=== PATIENT | female | born 1965 | race African-American/Black ===

== ENCOUNTER 2016-12-29 23:24 | Inpatient (IN) | payer MEDICARE ==
--- NOTE | ~2016-12-29 | DS ---
Unit #: [id number] #: [id number] Patient: TORIE PIMENTEL [id number] [address] [place], [place] [address] [id number] I MR#: [id number] NAME: TORIE PIMENTEL ROOM: 318 Age: 51 Sex: F Admission Date: 12/29/2016 : 1965 Discharge Date: 01/04/2017 Attending Physician: Ander Mckeon M.D. Primary Care Physician: Priscilla Tejeda M.D. DISCHARGE SUMMARY DISCHARGE DIAGNOSES 1. Acute hypoxic respiratory failure, has been weaned off of oxygen and is on room air at this time. 2. Pneumonia, presumed to be gram-negative rods. 3. Persistent bilateral pleural effusions. 4. Type 2 diabetes. Patient is quite brittle. Her blood sugars range from 61-331, although she is uncontrolled. A1c accessed was 9.6. Asking for followup appointment with Dr. Weaver. 5. Acute kidney injury with chronic kidney disease. Of note, eosinophils are present in her urine, although her creatinine has normalized at this time at 0.9 and a renal ultrasound was unremarkable. 6. Sepsis present on admission. PROCEDURES None. PARTY PLAN SELLING DISTRIBUTOR Dr. Michael Flores of pulmonary. DIAGNOSTIC STUDIES IMAGING: Consists of a chest x-ray on 12/31/16. Impression: Unchanged when compared to that from study before from another hospital. Renal ultrasound. Impression: Negative renal ultrasound. Chest x-ray on 01/02/2017 with impression of bilateral pleural effusions with decrease in the bibasilar infiltrates compared with 12/31/16. LABORATORY: On the day of discharge, patient's labs include BMP: Glucose 61, BUN 34, creatinine 0.9, sodium 138, potassium 4.2, chloride is 101, CO2 31, calcium is 9.1. CBC: WBC of 12, RBC of 3.98, hemoglobin is 9.7, hematocrit is 32.2, MCV is 80.9, MCH is 24.5, MCHC is 30.3, RDW 7.4, platelets are 378, and MPV is 8.6. Microbiology: Patient had stool was negative occult. Again, random urine had occasional eosinophils. Blood culture has been negative to date. HOSPITAL COURSE Patient is a pleasant, 51-year-old female with a past medical history of essential hypertension, hyperlipidemia, coronary artery disease, deafness, type 2 diabetes, nephrolithiasis, and chronic foot wound who presented to [facility] due to flu-like symptoms. History is obtained via alarm signaler. Patient states she had not been feeling well two days prior to hospitalization. She had reported fever, Unit #: [id number] #: [id number] Patient: PIMENTEL,TORIE chills, cough, and body aches. She had denied chest pain. No palpitations. She states that she had 3 bouts of nonbloody emesis within the past 24 hours prior to hospitalization. She had denied any diarrhea. She has been constipated. Her last stool was a few days prior to admission. She had denied any urinary symptoms. In the emergency department at [facility], her initial oxygen saturation was 68% on room air. Chest x-ray had shown dense consolidation involving the left base. She was given azithromycin and subsequently transferred to [facility] for higher care. She was admitted for sepsis due to pneumonia with acute hypoxic respiratory failure. She was started on IV azithromycin and Rocephin for community-acquired pneumonia treating for possibly gram-negative rods. She continued to get IV antibiotics and supportive care with oxygenation. She continued to feel better. Due to her significant hypoxia, acute renal failure, and sepsis; Dr. Michael Flores of pulmonary was consulted. She was treated with low-dose IV steroid for her uncontrolled type 2 diabetes as well as bronchodilators and mucolytics and she had required high flow nasal cannula as she continued with a course of supportive care for the pneumonia and IV antibiotics. She continued to feel better. At the time of discharge, she has been weaned off of oxygen and is on room air saturating 94%. With regards to her white blood count, she had presented with a blood count of 9.5. It therese higher to 17.5. On the day of discharge, her white count is currently 12. She has been afebrile during her entire admission. Therefore, it was felt that she was stable. With regards to her pneumonia, after a week of hospitalization, it was felt that patient had completed her course of antibiotics and will no longer need any additional antibiotics. She can go home with continued supportive care for her congestion. She is a very brittle diabetic. I tried to adjust her insulin, but she would then become hypoglycemic and we would have to adjust her insulin back and forth multiple times. I am asking that patient be evaluated as a new patient with Dr. Weaver for her uncontrolled type 2 diabetes. Of note, patient's influenza is negative for flu A and B. DISCHARGE CONDITION Stable. DISCHARGE FOLLOWUP 1. Follow up with her primary care physician within 1-2 weeks. 2. Please make an appointment for Dr. Weaver as a new patient for uncontrolled type 2 diabetes. DISCHARGE MEDICATIONS 1. Celexa 10 mg orally daily. 2. Claritin, she can get [id number], 10 mg orally daily. She says this is helping her. 3. Buspirone 7.5 mg orally twice daily. 4. Norvasc 10 mg orally daily. 5. Metoprolol 50 mg orally twice daily. 6. Hydrochlorothiazide 25 mg orally daily. 7. Lipitor 40 mg orally daily. 8. Lantus 35 units subcutaneously at bedtime as well as 15 units of NovoLog subcutaneously 3 times daily with meals. 9. I am also recommending a low-dose sliding scale insulin with her meals. 10. Iron supplement 1 tablet orally daily. 11. Pepcid 20 mg orally twice daily. 12. Aspirin 81 mg orally daily. 13. Vitamin B12 with folate 1 tablet orally daily. Unit #: [id number] #: [id number] Patient: TORIE PIMENTEL 14. Combivent inhaled 2 puffs every 4-6 hours as needed for wheezing and/or dyspnea. Dictated by... Jermaine Ríos PA-C for Enoc Gregory/rafaela TD: 01/06/2017 08:34 JOB #: [id number] DISCHARGE SUMMARY X X DISCHARGE SUMMARY
--- NOTE | ~2016-12-29 | EKG ---
PATIENT: TORIE PIMENTEL UNIT #: [id number] Ventricular Rate: 81 BPM Atrial Rate: 81 BPM P-R Interval: 122 ms QRS Duration: 86 ms Q-T Interval: 374 ms QTC Calculation(Bezet): 434 ms P [place]: 83 degrees Calculated R [place]: 85 degrees Calculated T [place]: 64 degrees Diagnosis Line: Normal sinus rhythm Diagnosis Line: Nonspecific ST abnormality Diagnosis Line: Abnormal ECG Diagnosis Line: No previous ECGs available Diagnosis Line: Confirmed by ANTHONY OLIVEROS MD ([id number]) on Diagnosis Line: 01/01/2017 10:40:31 PM INTERPRETING MD: NYLA
--- NOTE | ~2016-12-29 | CO ---
Unit #: [id number] #: [id number] Patient: TORIE PIMENTEL [id number] [address] [place], [place] [address] [id number] I MR#: [id number] NAME: TORIE PIMENTEL ROOM: 315 Age: 51 Sex: F Admission Date: 12/29/2016 : 1965 Attending Physician: Nedra Boyd M.D. Primary Care Physician: Priscilla Tejeda M.D. Consultation Date: 12/31/2016 CONSULTATION REPORT REASON FOR CONSULTATION Hypoxic respiratory failure. CHIEF COMPLAINT Shortness of breath. HISTORY OF PRESENT ILLNESS This is a 51-year-old female, with past medical history significant for deafness, diabetes, hypertension, hyperlipidemia, chronic kidney disease who presented to the emergency room with flu-like symptoms. The patient stated that she has been having an upper respiratory symptom for the last week or so. Her symptoms mainly is dry cough and nagging left-sided chest pain. She had some nausea but no vomiting. She had high fever a few days ago but not anymore. She denied any runny nose or sore throat. The patient denied any history of smoking. She didn't have any lung issues like chronic obstructive pulmonary disease or asthma. PAST MEDICAL HISTORY 1. Hypertension. 2. Hyperlipidemia. 3. Carotid artery stenosis. 4. Deafness. 5. Diabetes. 6. Gastroesophageal reflux disease. 7. Nephrolithiasis. 8. Chronic wound. 9. Peripheral vascular disease. PAST SURGICAL HISTORY 1. Esophagogastroduodenoscopy. 2. Toe amputation. 3. section. 4. Lithotripsy. 5. Fem-pop arterial bypass graft. 6. Heart surgery. 7. Eye surgery. SOCIAL HISTORY The patient lives with her roommate. No history of alcohol and drug abuse, or smoking. FAMILY HISTORY Unit #: [id number] #: [id number] Patient: TORIE PIMENTEL Coronary artery disease. ALLERGIES No known drug allergies. HOME MEDICATIONS 1. Levemir 2. Lopressor 3. Nexium 4. NovoLog 5. Pravastatin 6. Aspirin 7. HCTZ REVIEW OF SYSTEMS Twelve point review of systems were obtained and were negative except for what was mentioned in the history of present illness. PHYSICAL EXAMINATION GENERAL: The patient is in no acute distress. HEENT: Head: Atraumatic and normocephalic. Extraocular muscles are intact. NECK: Supple. No jugular venous distention. No lymphadenopathy. CHEST: Bilateral fine rhonchi and chest tightness. HEART: S1 and S2. No murmurs, gallops, or rubs. ABDOMEN: Soft and nontender. Bowel sounds are positive. No hepatosplenomegaly. EXTREMITIES: No edema or cyanosis. SKIN: No rashes. The patient had an old wound scarring. MOLECULAR GENETICIST: The patient is awake, alert, oriented x3. She is deaf, otherwise no focal motor or sensory deficit. DIAGNOSTIC STUDIES LABORATORY: Creatinine 1.7, sodium 137. IMAGING: CT chest and chest x-ray are reviewed by me and consistent with pneumonia. ASSESSMENT 1. Acute hypoxic respiratory failure. 2. Community acquired pneumonia likely Gram positive. 3. Deafness. 4. Hypertension. 5. Hyperlipidemia. 6. Diabetes. PLAN 1. The patient is hemodynamically stable; however, her pO2 on the blood gas is extremely low. 2. Will transition her oxygen up to high flow. 3. Aggressive pulmonary toilet and bronchodilator. 4. Low dose IV steroids due to her uncontrolled diabetes. 5. Bronchodilator and mucolytics. 6. Continue current antibiotics pending culture. 7. DVT prophylaxis. Unit #: [id number] #: [id number] Patient: TORIE PIMENTEL Dictated by... Enoc Miller TD: 01/01/2017 13:42 JOB #: [id number] CONSULTATION REPORT X LUCIANO STEVENS MD X CONSULTATION REPORT
--- NOTE | ~2016-12-29 | HP ---
Unit #: [id number] #: [id number] Patient: TORIE PIMENTEL [id number] [address] [address] [id number] I MR#: [id number] NAME: TORIE PIMENTEL ROOM: 315 Age: 51 Sex: F Admission Date: 12/29/2016 : 1965 Attending Physician: Evelyne Dyson M.D. Primary Care Physician: Priscilla Tejeda M.D. HISTORY AND PHYSICAL CHIEF COMPLAINT Flu-like symptoms. HISTORY OF PRESENT ILLNESS The patient is a 51-year-old female with a past medical history of hypertension, hyperlipidemia, carotid artery stenosis, deafness, diabetes, GERD, nephrolithiasis, chronic foot wound who presented to [facility] for evaluation of the above. History is obtained via kitchen and bath designer. The patient states that she has not been feeling well for two days. She reports fever, chills, cough and body aches. She denies any chest pain. No palpitations. She states that she has had three bouts of nonbloody emesis within the past 24 hours. She denies any diarrhea. She has been constipated. Her last stool was a few days ago. She denies any urinary symptoms. In the emergency department at [facility], the patient's initial oxygen saturation was apparently 68% on room air. Chest x-ray shows dense consolidation involving the left base. She was given azithromycin as well as Rocephin and transferred to [facility] for admission. PAST MEDICAL HISTORY 1. Hypertension. 2. Hyperlipidemia. 3. Carotid artery stenosis. 4. Deafness. 5. Diabetes. 6. GERD. 7. Nephrolithiasis. 8. Chronic wounds involving the left foot. 9. Peripheral artery disease status post femoropopliteal artery bypass grafting. PAST SURGICAL HISTORY 1. EGD. 2. Toe amputation. 3. . 4. Lithotripsy. 5. Femoropopliteal artery bypass graft. 6. Heart surgery at [age] years of age. 7. Eye surgery. Unit #: [id number] #: [id number] Patient: TORIE PIMENTEL SOCIAL HISTORY The patient has a roommate. There is no tobacco or alcohol use. FAMILY HISTORY Notable for her dad having a myocardial infarction. ALLERGIES No known allergies. HOME MEDICATIONS 1. Levemir. 2. Metoprolol. 3. Nexium. 4. NovoLog. 5. Pravastatin. 6. Aspirin. 7. Buspirone. 8. Hydrochlorothiazide. REVIEW OF SYSTEMS A 10-point review of systems is negative except as indicated in the HPI. The patient states that she has been seeing the [facility] regarding wounds on the left foot. PHYSICAL EXAMINATION GENERAL APPEARANCE: The patient is an -[place] female who is awake and alert, in no acute distress. VITAL SIGNS: Temperature 100.7. Pulse 101. Respirations 20. Blood pressure 122/58. Oxygen saturation initially 68% on room air. HEENT: The head is atraumatic. Mucous membranes are moist. NECK: Supple. Trachea is midline. CARDIOVASCULAR: Regular rate and rhythm. LUNGS: Decreased breath sounds at the bases. Breathing is not labored with conversation. ABDOMEN: Soft, nontender with bowel sounds present in all four quadrants. EXTREMITIES: Nontender with no pedal edema. The plantar surface of the left foot demonstrates two chronic appearing wounds. NEUROLOGIC: The patient is awake and alert. She follows commands. She is deaf. PSYCHIATRIC: Mood and affect are normal. The patient is cooperative. SKIN: Of examined areas is warm and dry. She does have the chronic wounds on the plantar surface of the left foot. DIAGNOSTIC STUDIES LABORATORY: Lactic acid is 1.2. Urinalysis is notable for 100 protein, trace blood, 2+ bacteria. Comprehensive metabolic panel is notable for a glucose of 153, BUN and creatinine 27 and 1.3 respectively, protein 8.2. Complete blood count notable for WBC count of 11, hemoglobin and hematocrit 9.9 and 32.3 respectively. IMAGING: Chest x-ray shows dense airspace consolidation in the left lung base. CT of the chest shows moderate bilateral pleural effusions, left greater than right. CARDIOVASCULAR: I was told an EKG was done. I do not see a report in the attached records. Unit #: [id number] #: [id number] Patient: TORIE PIMENTEL ASSESSMENT The patient is a 51-year-old female with: 1. Acute respiratory failure, hypoxic. 2. Pneumonia, community acquired. 3. Bilateral pleural effusions. 4. Sepsis. 5. Hypertension. 6. Hyperlipidemia. 7. Carotid artery stenosis. 8. Peripheral arterial disease. 9. Deafness. 10. Diabetes. 11. GERD. 12. Nephrolithiasis. 13. Chronic wounds of the left foot, present on admission, currently followed by [facility] [place] [facility]. PLAN 1. Admit to intermediate level. 2. Healthy Heart, consistent carb diet. 3. Supplemental oxygen two to four liters to maintain saturations greater than 92%. 4. Blood cultures x2. 5. Sputum culture and sensitivity. 6. Procalcitonin level. 7. Rocephin IV and azithromycin IV for community-acquired pneumonia pending further workup. 8. DuoNeb q.4 hours p.r.n. 9. Sepsis protocol with STAT lactic acid. 10. Rapid flu screen if not done. 11. Serial cardiac enzymes. 12. EKG if not done. 13. 2D echo for further evaluation of bilateral pleural effusions. 14. Check BMP. 15. Hemoglobin A1C. 16. Insulin sliding scale with Accu-Cheks. 17. Strict Is and Os. 18. Daily weights. 19. Repeat labs later this morning. 20. Wound Care consult regarding foot wounds. 21. Additional workup and consultants based on above. Dictated by Enoc Ramsay/bc TD: 12/30/2016 05:59 JOB #: [id number] Unit #: [id number] #: [id number] Patient: PIMENTEL,TORIE HISTORY AND PHYSICAL X Evelyne Dyson MD X HISTORY AND PHYSICAL
--- NOTE | ~2016-12-29 | US77 ---
[facility] A Service of [facility] RADIOLOGY TEXT RESULTS PATIENT: TORIE PIMENTEL LOCATION: [facility] : [birth year] UNIT #: [id number] AGE: [address]: Nedra Boyd MD SEX: F ORDER DR: [id number] [place], [place] [address] [id number] I MR#: [id number] Acc #: [id number] NAME: TORIE PIMENTEL : 1965 SEX: F STUDY DATE/TIME: 12/31/2016 13:26 UNIT: C3A PCU ROOM: [facility] STUDY DESCRIPTION: US Kidney Bilateral Complete Attending Physician: Nedra Boyd M.D. Ordering Physician: [facility] Primary Care Physician: Priscilla Tejeda M.D. MEDICAL IMAGING REPORT This report is preliminary unless electronic signature is present EXAM Renal ultrasound INDICATIONS Acute kidney injury. BUN 53. Creatinine 1.7. eGFR 40.6. TECHNIQUE Wy[place]-scale and Doppler imaging kidneys and bladder. COMPARISON 10/06/2016. FINDINGS Right kidney measures 9.7 cm. Cortical thickness 12 mm. Unremarkable bladder. Left kidney measures 10 cm. Normal cortical thickness. No hydronephrosis. IMPRESSION Negative renal ultrasound. Dictated by... Joselo Fuentes M.D. THIS IS AN ELECTRONICALLY VERIFIED REPORT Joselo Fuentes M.D. at 01/02/2017 6:59 AM EED/pcl TD: 12/31/2016 16:22 JOB #: [id number] MEDICAL IMAGING REPORT [facility] A Service of [facility] RADIOLOGY TEXT RESULTS PATIENT: TORIE PIMENTEL LOCATION: [facility] : [birth year] UNIT #: [id number] AGE: [address]: Nedra Boyd MD SEX: F ORDER DR: COPY
--- NOTE | ~2016-12-29 | CR72 ---
[facility] A Service of [facility] RADIOLOGY TEXT RESULTS PATIENT: TORIE PIMENTEL LOCATION: [facility] 318- : [birth year] UNIT #: [id number] AGE: [address]: Ander Mckeon MD SEX: F ORDER DR: [id number] [facility] [address] [place], [place] [address] [id number] I MR#: [id number] Acc #: [id number] NAME: TORIE PIMENTEL : 1965 SEX: F STUDY DATE/TIME: 01/02/2017 18:47 UNIT: A U ROOM: 318 STUDY DESCRIPTION: CR Chest Single View Portable Attending Physician: Ander Mckeon M.D. Ordering Physician: Ander Mckeon M.D. Primary Care Physician: Priscilla Tejeda M.D. MEDICAL IMAGING REPORT This report is preliminary unless electronic signature is present EXAM Portable chest, 01/02/2017 HISTORY Shortness of breath, cough and chest congestion and pneumonia for 4 days. FINDINGS Cardiac and mediastinal structures are stable compared with 12/31/2016. There are bilateral pleural effusions with interval decrease in the bibasilar infiltrates. No pneumothorax. IMPRESSION Bilateral pleural effusions with decrease in the bibasilar infiltrates compared with 12/31/2016. Dictated by... Willy Sanchez M.D. THIS IS AN ELECTRONICALLY VERIFIED REPORT Willy Sanchez M.D. at 01/03/2017 4:20 PM ABI/lesli TD: 01/03/2017 02:10 JOB #: [id number] MEDICAL IMAGING REPORT COPY
--- NOTE | ~2016-12-29 | CR72 ---
[facility] A Service of [facility] & [facility] RADIOLOGY TEXT RESULTS PATIENT: TORIE PIMENTEL LOCATION: [facility] 315- : 63 UNIT #: [id number] AGE: [address]: Nedra Boyd MD SEX: F ORDER DR: [id number] [facility] [address] [place], [place] [address] [id number] I MR#: [id number] Acc #: [id number] NAME: TORIE PIMENTEL : 1965 SEX: F STUDY DATE/TIME: 12/31/2016 8:45 [facility] STUDY DESCRIPTION: CR Chest Single View Portable Attending Physician: Nedra Boyd M.D. Ordering Physician: Shaun Barnard M.D. Primary Care Physician: Priscilla Tejeda M.D. MEDICAL IMAGING REPORT This report is preliminary unless electronic signature is present EXAM AP portable chest 12/31/2016. HISTORY 51-year-old female admitted to the hospital yesterday with shortness of air, cough, fever and decreased oxygen saturation. Dense bibasilar pulmonary infiltrates. TECHNIQUE AP portable chest x-ray. FINDINGS The exam shows dense airspace infiltrate in both lung bases posteriorly, greater on the left. Small pleural effusions. Mild cardiomegaly is stable. No significant change since yesterday. IMPRESSION Stable portable chest radiograph, unchanged since yesterday. Dictated by... Hakeem Hammer M.D. THIS IS AN ELECTRONICALLY VERIFIED REPORT Hakeem Hammer M.D. at 12/31/2016 3:01 PM IRINEO/todd TD: 12/31/2016 12:15 JOB #: [id number] MEDICAL IMAGING REPORT COPY
[2016-12-30 06:42] LABS: %MB 1.7 % (0.0-4.0); MB 1.4 ng/ml
[2016-12-30] MEDS ORDERED: LIPITOR40 MG PO (07:34)
[2016-12-30] MEDS ORDERED: NORVASC10 MG PO (07:36)
[2016-12-30] MEDS ORDERED: CELEXA10 M1 PO (07:37)
[2016-12-30] MEDS ORDERED: BUSPIRONE HCL7.5 MG PO (07:37)
[2016-12-30] MEDS ORDERED: HYDROCHLOROTHIA25 MG PO (07:38)
[2016-12-30] MEDS ORDERED: METOPROLOL TART25 MG PO (07:39)
[2016-12-30] MEDS ORDERED: PEPCID AC20 M2 PO (07:40)
[2016-12-30] MEDS ORDERED: NOVOLOG100 U/M2 SUBQ (07:40)
[2016-12-30] MEDS ORDERED: LO-DOSE ASPIRIN81 M1 PO (07:41)
[2016-12-30] MEDS ORDERED: LANTUS100 U/ML SUBQ (07:42)
[2016-12-30] MEDS ORDERED: IRON1 TAB PO (07:44)
[2016-12-30] MEDS ORDERED: ENFOLAST TABLE1 EACH PO (07:44)
[2016-12-30 10:50] LABS: BASOPHIL% 0.4 % (0-2.5); HEMATOCRIT 29.1 % (35.0-45.0); HEMOGLOBIN 8.9 gm/dL (12.0-16.0); LYMPHOCYTE# 0.6 X10e3 (1.0-3.5); LYMPHOCYTE% 6.6 % (17.0-45.0); MEAN CELL VOLUME 82.8 FL (83-96); MEAN CORPUSCULAR HEMOGLOBIN 25.3 PG (28-34); MEAN CORPUSCULAR HGB CONC 30.6 g/dL (30-36); MEAN PLATELET VOLUME 9.3 FL (6.5-11.5); MONOCYTE# 0.1 X10e3 (0-1.0); MONOCYTE% 1.2 % (3.0-12.0); NEUTROPHIL# 8.7 X10e3 (1.5-7.1); NEUTROPHIL% 91.8 % (40-75); PLATELET COUNT 271 X10e3 (140-420); RED BLOOD COUNT 3.52 X10e (3.90-5.30); RED CELL DISTRIBUTION WIDTH 17.7 % (11.0-15.5); WHITE BLOOD COUNT 9.5 X10e3 (4.0-10.5)
[2016-12-30 10:54] LABS: DIFF IND NO
[2016-12-30 11:21] LABS: ALBUMIN SERUM 3.2 g/dL (3.5-5.0); BILIRUBIN,TOTAL 0.5 mg/dL (0.2-2.0); BUN/CREATININE RATIO 21.05; CALCIUM SERUM 8.4 mg/dL (8.4-10.2); CREATININE SERUM 1.9 mg/dL (0.6-1.4); GLOM FILT RATE Estimated 35.7 mL/min (>60); POTASSIUM 4.8 mmol/L (3.5-5.1); PROTEIN TOTAL SERUM 7.5 g/dL (6.0-8.3)
[2016-12-30 13:29] LABS: PROCALCITONIN 0.67 NG/ML
[2016-12-30 17:01] LABS: BUN/CREATININE RATIO 26.11; CALCIUM SERUM 8.2 mg/dL (8.4-10.2); CREATININE SERUM 1.8 mg/dL (0.6-1.4); POTASSIUM 4.5 mmol/L (3.5-5.1)
[2016-12-30 20:27] LABS: URINE SOURCE CLEAN CATCH
[2016-12-30 20:31] LABS: URINE APPEARANCE CLOUDY; URINE BILIRUBIN NEG (NEG); URINE BLOOD NEG (NEG); URINE COLOR YELLOW; URINE GLUCOSE >1000 MG/DL (NEG); URINE KETONE NEG (NEG); URINE LEUKOCYTE ESTERASE NEG (NEG); URINE NITRATE NEG (NEG); URINE PROTEIN TRACE (NEG); URINE SPECIFIC GRAVITY 1.024 (1.003-1.035)
[2016-12-30 22:29] LABS: INFLUENZA A NEG (NEG); INFLUENZA B NEG (NEG)
[2016-12-31 08:28] LABS: ARTERIAL BLD GAS O2 SATURATION 86.7 % (90.0-100.0); ARTERIAL BLOOD GAS CARBOXY HB 0.8 %sat (0.0-9.0); ARTERIAL BLOOD GAS HCO3 27.2 mmol/L; ARTERIAL BLOOD GAS MET HB 0.8 %sat (0.0-2.0); ARTERIAL BLOOD GAS pH 7.325 (7.350-7.450)
[2016-12-31 08:30] LABS: ARTERIAL BLOOD GAS ALLEN TEST NORMAL; ARTERIAL BLOOD GAS ART SITE LEFT RADIAL; ARTERIAL BLOOD GAS DELIVERY VENTURI; ARTERIAL BLOOD GAS PCO2 52.2 mmHg (35.0-45.0); ARTERIAL BLOOD GAS PO2 58.5 mmHg (80.0-100); ARTERIAL DRAW? YES
[2016-12-31 09:52] LABS: HEMATOCRIT 31.4 % (35.0-45.0); HEMOGLOBIN 9.6 gm/dL (12.0-16.0); MEAN CELL VOLUME 80.6 FL (83-96); MEAN CORPUSCULAR HEMOGLOBIN 24.7 PG (28-34); MEAN CORPUSCULAR HGB CONC 30.7 g/dL (30-36); MEAN PLATELET VOLUME 9.1 FL (6.5-11.5); RED BLOOD COUNT 3.89 X10e (3.90-5.30); RED CELL DISTRIBUTION WIDTH 17.6 % (11.0-15.5)
[2016-12-31 09:53] LABS: WHITE BLOOD COUNT 17.5 X10e3 (4.0-10.5)
[2016-12-31 10:24] LABS: ALBUMIN SERUM 3.3 g/dL (3.5-5.0); BILIRUBIN,TOTAL 0.4 mg/dL (0.2-2.0); BUN/CREATININE RATIO 31.17; CALCIUM SERUM 8.5 mg/dL (8.4-10.2); CREATININE SERUM 1.7 mg/dL (0.6-1.4); GLOM FILT RATE Estimated 40.6 mL/min (>60); MAGNESIUM 1.9 mg/dL (1.6-3.0); POTASSIUM 4.8 mmol/L (3.5-5.1)
[2016-12-31 13:13] LABS: CREATININE,RANDOM URINE 29 mg/dL; SODIUM URINE RANDOM 109 mmol/L
[2016-12-31 14:37] LABS: OSMOLALITY,URINE 371 mOsmo/kg (250-900)
[2017-01-01 03:56] LABS: ARTERIAL BLD GAS O2 SATURATION 93.6 % (90.0-100.0); ARTERIAL BLOOD GAS CARBOXY HB 0.5 %sat (0.0-9.0); ARTERIAL BLOOD GAS HCO3 29.2 mmol/L; ARTERIAL BLOOD GAS MET HB 0.9 %sat (0.0-2.0); ARTERIAL BLOOD GAS pH 7.339 (7.350-7.450)
[2017-01-01 03:57] LABS: ARTERIAL BLOOD GAS ART SITE RIGHT BRACHIAL; ARTERIAL BLOOD GAS PCO2 54.3 mmHg (35.0-45.0); ARTERIAL BLOOD GAS PO2 75.8 mmHg (80.0-100); ARTERIAL DRAW? YES
[2017-01-01 03:58] LABS: ARTERIAL BLOOD GAS DELIVERY HEATED HIGH FLOW
[2017-01-01 11:08] LABS: BUN/CREATININE RATIO 33.33; CALCIUM SERUM 8.8 mg/dL (8.4-10.2); CREATININE SERUM 1.5 mg/dL (0.6-1.4); GLOM FILT RATE Estimated 46.9 mL/min (>60); POTASSIUM 4.7 mmol/L (3.5-5.1)
[2017-01-02 04:33] LABS: HEMATOCRIT 29.4 % (35.0-45.0); HEMOGLOBIN 9.3 gm/dL (12.0-16.0); MEAN CELL VOLUME 80.6 FL (83-96); MEAN CORPUSCULAR HEMOGLOBIN 25.4 PG (28-34); MEAN CORPUSCULAR HGB CONC 31.5 g/dL (30-36); MEAN PLATELET VOLUME 8.7 FL (6.5-11.5); RED BLOOD COUNT 3.65 X10e (3.90-5.30); RED CELL DISTRIBUTION WIDTH 17.7 % (11.0-15.5); WHITE BLOOD COUNT 10.2 X10e3 (4.0-10.5)
[2017-01-02 04:58] LABS: BLOOD UREA NITROGEN 45 mg/dL (9-23); CALCIUM SERUM 8.5 mg/dL (8.4-10.2); CARBON DIOXIDE 29 mmol/L (22-31); CHLORIDE 100 mmol/L (100-111); CREATININE SERUM 1.1 mg/dL (0.6-1.4); GLOM FILT RATE Estimated ABOVE60 mL/min (>60); GLUCOSE FASTING 232 mg/dL (70-110); POTASSIUM 5.1 mmol/L (3.5-5.1); SODIUM 136 mmol/L (135-145)
[2017-01-03 05:20] LABS: MEAN CORPUSCULAR HEMOGLOBIN 25.1 PG (28-34); MEAN CORPUSCULAR HGB CONC 31.4 g/dL (30-36); RED CELL DISTRIBUTION WIDTH 17.6 % (11.0-15.5); WHITE BLOOD COUNT 10.5 X10e3 (4.0-10.5)
[2017-01-03 06:13] LABS: BLOOD UREA NITROGEN 38 mg/dL (9-23); CALCIUM SERUM 9.3 mg/dL (8.4-10.2); CARBON DIOXIDE 29 mmol/L (22-31); CHLORIDE 101 mmol/L (100-111); GLOM FILT RATE Estimated ABOVE60 mL/min (>60); GLUCOSE FASTING 279 mg/dL (70-110); SODIUM 136 mmol/L (135-145)
[2017-01-03 06:24] LABS: POTASSIUM 5.6 mmol/L (3.5-5.1)
[2017-01-03 15:34] LABS: BLOOD UREA NITROGEN 38 mg/dL (9-23); CALCIUM SERUM 9.4 mg/dL (8.4-10.2); CARBON DIOXIDE 28 mmol/L (22-31); CHLORIDE 99 mmol/L (100-111); GLOM FILT RATE Estimated ABOVE60 mL/min (>60); GLUCOSE FASTING 228 mg/dL (70-110); POTASSIUM 4.8 mmol/L (3.5-5.1); SODIUM 136 mmol/L (135-145)
[2017-01-04 05:58] LABS: HEMATOCRIT 32.2 % (35.0-45.0); HEMOGLOBIN 9.7 gm/dL (12.0-16.0); MEAN CELL VOLUME 80.9 FL (83-96); MEAN CORPUSCULAR HEMOGLOBIN 24.5 PG (28-34); MEAN CORPUSCULAR HGB CONC 30.3 g/dL (30-36); MEAN PLATELET VOLUME 8.6 FL (6.5-11.5); RED BLOOD COUNT 3.98 X10e (3.90-5.30); RED CELL DISTRIBUTION WIDTH 17.7 % (11.0-15.5)
[2017-01-04 06:59] LABS: BLOOD UREA NITROGEN 34 mg/dL (9-23); BUN/CREATININE RATIO 37.77; CALCIUM SERUM 9.1 mg/dL (8.4-10.2); CARBON DIOXIDE 31 mmol/L (22-31); CHLORIDE 101 mmol/L (100-111); CREATININE SERUM 0.9 mg/dL (0.6-1.4); GLOM FILT RATE Estimated ABOVE60 mL/min (>60); GLUCOSE FASTING 61 mg/dL (70-110); MAGNESIUM 1.5 mg/dL (1.6-3.0); POTASSIUM 4.2 mmol/L (3.5-5.1); SODIUM 138 mmol/L (135-145)
[2017-01-04] MEDS ORDERED: CLARITIN10 M3 PO (17:16)
[2017-01-04] MEDS ORDERED: AZITHROMYCIN250 MG PO (17:16)
[2017-01-04] MEDS ORDERED: COMBIVENT RESPIM4 GM INH (17:17)
[2017-01-04] MEDS ORDERED: NOVOLOG100 U/ML SUBQ (17:19)
== END 2017-01-04 19:33 | disposition home or self-care (01) | DRG 871 ==
LOC: C3A PCU 23:24
PROVIDERS: Family Medicine; Internal Medicine; Nurse Practitioner
PROC: B246YZZ Ultrasonography of Right and Left Heart using Other Contrast (ICD-10-PCS; 2016-12-30)
PROC: 3E0234Z Introduction of Serum, Toxoid and Vaccine into Muscle, Percutaneous Approach (ICD-10-PCS; principal; 2017-01-04)
DX: A41.9 Sepsis, unspecified organism (principal); J15.6 Pneumonia due to other Gram-negative bacteria; J96.01 Acute respiratory failure with hypoxia; N17.9 Acute kidney failure, unspecified; E11.22 Type 2 diabetes mellitus with diabetic chronic kidney disease; E11.9 Type 2 diabetes mellitus without complications; I12.9 Hypertensive chronic kidney disease with stage 1 through stage 4 chronic kidney disease, or unspecified chronic kidney disease; D64.9 Anemia, unspecified; J44.1 Chronic obstructive pulmonary disease with (acute) exacerbation; N18.9 Chronic kidney disease, unspecified; E78.5 Hyperlipidemia, unspecified; I25.10 Atherosclerotic heart disease of native coronary artery without angina pectoris; H91.90 Unspecified hearing loss, unspecified ear; Z89.429 Acquired absence of other toe(s), unspecified side; Z79.82 Long term (current) use of aspirin; Z79.4 Long term (current) use of insulin; Z23 Encounter for immunization; S91.302D Unspecified open wound, left foot, subsequent encounter; L29.9 Pruritus, unspecified; Z87.442 Personal history of urinary calculi; I65.29 Occlusion and stenosis of unspecified carotid artery
CPT/HCPCS: 36600; 71010; 76770; 80048; 80053; 81003; 82274; 82308; 82550; 82553; 82570; 82803; 82947; 83036; 83605; 83735; 83880; 83930; 83935; 84300; 84484; 85025; 85027; 87040; 87633; 87804; 89190; 90688; 93005; 93306; 94640; 94760; 97110; 97116; 97162; 97166; 97530; 97535; G8978-GP; G8979-GP; G8987-GO; G8988-GO; G8989-GO; J0456; J0696; J1644; J1815; J1940; J2405; J2920; J3475